=== PATIENT | male | born 1975 | race Caucasian/White ===

== ENCOUNTER 2017-06-10 00:02 | Emergency (ER) | payer BC ==
[2017-06-10] MEDS: HYDROCODONE/APAP (5/325) TAB PO (06:41)
[2017-06-10] MEDS: ONDANSETRON (ODT) 4 MG TAB ODT (06:42)
== END 2017-06-10 09:06 | disposition home or self-care (01) ==
LOC: FTE 00:02
DX: M79.672 Pain in left foot (principal); F17.210 Nicotine dependence, cigarettes, uncomplicated
CPT/HCPCS: 73630; 73630-LT; 99284-25